=== PATIENT | male | born 1950 | race Caucasian/White ===

== ENCOUNTER → 2019-10-12 | Outpatient (CLI) | payer MEDICARE ==
[~2019-10-12] MED LIST: ASPI81TA45 PO; ISOS30TA8 PO; METO25TA91 PO; ROSU10TA2 PO
== END | disposition home or self-care (01) ==
LOC: CVU 08:54
PROVIDERS: ATTEND Internal Medicine Cardiovascular Disease
DX: I08.0 Rheumatic disorders of both mitral and aortic valves (principal); I11.9 Hypertensive heart disease without heart failure; I20.9 Angina pectoris, unspecified; E78.5 Hyperlipidemia, unspecified
CPT/HCPCS: 93306